=== PATIENT | female | born 1995 | race Caucasian/White ===

== ENCOUNTER 2024-01-05 06:20 | Day surgery (SDC) | payer BC ==
[2024-01-05] MEDS ORDERED: OXYMETAZOLINE HCL 0.05% 15ML NAS ONE (06:50)
[2024-01-05] MEDS ORDERED: LIDOCAINE HCL/EPINEPHRINE 20 ML MDV ONE (06:53)
[2024-01-05] MEDS ORDERED: NA CHLORIDE 0.9% 0 ML ONE (06:53)
[2024-01-05] MEDS: Ringers Lactate 1,000 ML IV ONE (06:55)
[2024-01-05] MEDS ORDERED: dexAMETHasone 10 MG/ML VIAL ONE (07:03)
[2024-01-05] MEDS: OXYMETAZOLINE HCL 0.05% 15ML NAS ONE (07:03)
[2024-01-05] MEDS ORDERED: ONDANSETRON 4 MG/2 ML VIAL ONE (07:03)
[2024-01-05] MEDS ORDERED: propofoL 200 MG/20 ML VIAL IV ONE (07:03)
[2024-01-05] MEDS ORDERED: FENTANYL CITR 100 MCG/2 ML ONE (07:03)
[2024-01-05] MEDS ORDERED: MIDAZOLAM HCL 2 MG/2 ML INJ ONE (07:04)
[2024-01-05] MEDS ORDERED: ROCURONIUM 50 MG/5 ML VIAL IV ONE ×2 (07:04→08:40)
[2024-01-05 07:33] LABS: Urine Specific Gravity/Preg 1.015 (1.005-1.030)
[2024-01-05] MEDS: LIDOCAINE 1% MPF 5 ML VIAL ONE (08:26)
[2024-01-05] MEDS ORDERED: SUGAMMADEX SODIUM 200 MG/2 ML VIAL IV ONE (09:18)
--- NOTE | 2024-01-05 10:14 | P.OP ---
Date of Service: 01/05/24 Preoperative Diagnosis: Chronic maxillary sinusitis, chronic sphenoid sinusitis, nasal obstruction, septal deviation, internal nasal valve collapse Postoperative diagnosis: Same Procedure: Endoscopy with bilateral sphenoid balloon dilation, right maxillary balloon dilation, left maxillary antrostomy. Septoplasty. Left inferior tu rbinate down fracture. Nasal valve treatment with implant. Surgeon: Lorie Baker MD Sock Mender: None Indication for procedure: The patient presented with persistent symptoms despite maximal medical therapy. Her posttreatment CT scan demonstrated obstruction of the bilateral sphenoid ostium with narrowing of the right maxillary infundibulum and narrowing of the left maxillary infundibulum with associated accessory maxillary ostium, left septal deviation. Her exam demonstrated severe bilateral nasal internal valve and alar collapse with inspiration. The risks, benefits, and alternatives to surgical procedure were discussed with the patient and/or family and they agreed to proceed. Surgical findings: Accessory left maxillary ostium as expected. Very narrow left nasal cavity with inability to pass a 4 mm scope to the middle meatus prior to septoplasty. Thick white mucoid drainage from the left and right sphenoethmoid recess IV Fluids: Crystalloid, see anesthesia record Implants/Packing: PosiSep, right nasal cavity Estimated Blood Loss: 30 mL Complications: None Description of procedure in detail: The patient was brought to the operating room. They were placed under general anesthesia via oral endotracheal tube. The head of bed was turned 90 degrees. The nasal hairs were trimmed. The nasal cavity was examined with the nasal speculum and headlight with the following findings: The nasal mucosa appeared well decongested with significant high posterior right septal deviation. The nasal cavity was packed with Afrin-soaked pledgets in preparation for the procedure. The patient was draped in a standard fashion for nasal surgery. A 0 degree endoscope was then used to perform a nasal endoscopy with notable findings of white thick mucoid drainage in the right spheno-ethmoid recess. Inability to pass 4 mm rigid endoscope to the left middle meatus due to the severity of the septal deviation. After switching to a 2 mm rigid pediatric scope, the left middle meatus and associated accessory maxillary os was identified. A small amount of thick white mucoid drainage was also noted in the left sphenoethmoid recess. Photo documentation was obtained. A [employer] balloon dilation device was prepared according to furnace keeper's instructions. The tip of the device was configured for dilation of the sphenoid sinuses. Using a 2 mm rigid 0 degree endoscope for visualization of nasal anatomy, the tip of the scope was passed through the left nasal cavity, passed the middle meatus and into the posterior nasal cavity and sphenoethmoid recess. The face of the sphenoid was carefully palpated until the entrance and natural ostium of the sinus was entered. The balloon was advanced over the catheter and inflated to its fullest extent. The inflation was held for approximately 10 to 15 seconds, then the balloon was deflated and withdrawn. A similar procedure was performed on the right side. Within the right sphenoethmoid recess, there is a moderate amount of thick white mucoid drainage which was suctioned. The balloon was then used to cannulate the ostium of the sphenoid sinus. Dilation was performed with inflation held for approximately 10 seconds followed by deflation and withdrawal. The balloon dilation device was then reconfigured to a 135 degree angle for dilation of the maxillary sinus. Using the 2 mm rigid 0 degree endoscope for visualization, the tip of the device was passed into the middle meatus and around the uncinate process with cannulation of the maxillary sinus. The balloon was advanced over the catheter and inflated. After several seconds the balloon was deflated and the device was carefully rotated with minimal mucosal injury away from the infundibulum and removed from the nose. Consideration was made for the left maxillary antrostomy, however the septum was deviated to the point where instrumentation and visualization was challenging. Decision was made to proceed with septoplasty and then returned to the sinus portion of the procedures. A headlight and nasal speculum was used for visualization of the nasal cavity. The septum was injected with approximately 1-1/2 mL of 1% lidocaine with epinephrine. The anterior/cartilaginous portion of the septum appeared close to midline and the primary part of the deviation was the bony septum. Therefore a right Miah incision was made through the nasal mucosa and a caudal elevator was used to elevate a right mucoperichondrial/periosteal flap. The caudal elevator was then used to incise through the posterior aspect of the quadrangular cartilage and a left mucoperiosteal flap was developed overlying the bony septal deviation. A Blakesley forcep was used to carefully remove small fragments from the bony deviation until the deviation was significantly i mproved and corrected. Due to the posterior location of the incision, no suture closure was required. The flap was reapproximated anatomically with Afrin- soaked pledgets applied to the nasal cavity. A Wilson elevator was used to judiciously down fracture the left inferior turbinate to avoid excessive mucosal disruption or injury. The 4 mm rigid endoscope was then able to pass through the left nasal cavity without significant restriction. The left middle turbinate was medialized using a Wilson elevator allowing visualization of the uncinate process. A small backbiter opening to the right was used to incise the uncinate process which was then removed in its inferior aspect using a 90 degree Blakesley. The natural ostium was well visualized but a persistent tissue bridge was noted between the natural ostium and the accessory ostium. A 0 degree Noel-Cut Blakesley was then used to remove the mucosa and bone the 2 openings to create a single antrostomy. Bleeding was mild to minimal. Afrin-soaked pledgets were placed within the middle meatus and attention was turned to the nasal valve The external nasal valve was carefully examined as was the nasal dorsum and bridge. The patient was noted to have very thin skin particularly along the upper portion of the nasal sidewall. The nasal bones seem to be relatively long in comparison to the overall length of the nose. Overall the patient had an anatomically small nose and decision was made for placement of a 20 mm Latera implant. The placement guide was placed over the nose and appropriate marking was designed to ensure that the prongs of the device would overlie the nasal bone with the most distal portion lying near but proximal to the alar crease. A double pronged hook was used to stephanie the right nostril and the device was used to puncture the skin within the nasal vestibule near the hairline. The device was inserted several millimeters and then the direction was reconfigured to be parallel to the nasal bone. Putting traction on the right nasal sill the device was advanced over the nasal bone. Position was confirmed by gently tenting the skin. Once in appropriate position, the device was deployed. Manual pressure was applied to the external portion of the nose and the medical payment poster was slowly and carefully withdrawn leaving the implant in place. Due to the thinness of the patient's skin, the superior fork of the device was visible and palpable through the skin. Manual pressure was applied to push the device slightly more proximal. Looking intranasally, the round distal portion of the device was palpated and grasped through the mucosa and used to displace the device approximately 1 mm which appeared to improve the overall appearance making the fork less prominent. The left implant was placed in a similar manner. The Moore of the device were less visible but still mildly notable due to the thinness of the patient's skin. Consideration was briefly made for removal but given the severity of the patient's nasal valve collapse, it was felt in the patient's best interest to evaluate her function and results 1 to 2 weeks following the procedure prior to making a decision for removal. Mastisol and Steri-Strips were applied to the external nose to provide protection and decrease soft tissue trauma from the patient's glasses in the postoperative. At the conclusion of the procedure, all pledget counts were confirmed correct. A PosiSep nasal dressing was then carefully placed within the right nasal cavity and thoroughly saturated with saline in order to provide protection and reduce crusting and aid in healing from the septoplasty incision. No implant or stenting was required on the left side. The nasal cavity was suctioned The patient was returned to care of anesthesia for awakening extubation in the operating room which proceeded without difficulty. The patient was transported to the recovery room and will be discharged home later today in the care of their family. The patient is given written and verbal instructions regarding the importance of saline irrigations and nasal precautions.
[2024-01-05 10:18] VITALS: BP 136/67; TEMP 97.2; O2SAT 100
== END 2024-01-05 11:00 | disposition home or self-care (01) ==
LOC: OR 06:20
PROVIDERS: ATTEND Otolaryngology
PROC: 09RM4KZ Replacement of Nasal Septum with Nonautologous Tissue Substitute, Percutaneous Endoscopic Approach (ICD-10-PCS; 2024-01-05)
PROC: 09JK8ZZ Inspection of Nasal Mucosa and Soft Tissue, Via Natural or Artificial Opening Endoscopic (ICD-10-PCS; principal; 2024-01-05 07:45)
DX: J32.0 Chronic maxillary sinusitis (principal); J32.3 Chronic sphenoidal sinusitis; J34.2 Deviated nasal septum; J34.89 Other specified disorders of nose and nasal sinuses; M95.0 Acquired deformity of nose
CPT/HCPCS: 31295; 31297; 30520; 30930; 81025; 88305; 88311; J2704; J2001; J2250; J3010; J1100; J2405; J7120; 88300; J7050